=== PATIENT | male | born 1975 | race Caucasian/White ===

== ENCOUNTER → 2017-11-19 | Outpatient (CLI) | payer OTHER ==
[~2017-11-19] MED LIST: NAPR1TAB9 PO; OXYC-57 PO
--- NOTE | 2017-11-19 11:22 | DIAGNOSTIC IMAGING REPORT ---
CHEST 2 VIEWS ROUTINE CLINICAL HISTORY: Preoperative evaluation. COMPARISON STUDY: No previous studies for comparison. FINDINGS: Lung volumes are normal. No pneumothorax or pleural effusion is noted. No consolidation or evidence for pulmonary edema. Cardiac size is normal. Mediastinal contours are normal. IMPRESSION: No acute cardiopulmonary findings. Electronically signed by: Yoel Echavarria M.D. 11/19/2017 11:21 AM Dictated Date/Time: 11/19/2017 11:20 AM
[2017-11-19 11:43] LABS: BASO % 0.2 %; BASO ABS # 0.02 K/uL (0-0.2); EOS % 0.9 %; EOS ABS # 0.09 K/uL (0-0.5); HEMATOCRIT 44.5 % (42-52); HEMOGLOBIN 15.6 g/dL (14.0-18.0); IG# 0.01 K/uL (0.00-0.02); LYMPH % 15.7 %; MEAN CELL VOLUME 94.7 fL (80-100); MEAN CORPUSCULAR HEMOGLOBIN 33.2 pg (25-34); MEAN CORPUSCULAR HGB CONC 35.1 g/dl (32-36); MEAN PLATELET VOLUME 10.7 fL (7.4-10.4); MONO % 9.5 %; MONO ABS # 0.91 K/uL (0.11-0.59); NEUT % 73.6 %; PLATELET COUNT 215 K/uL (130-400); RED CELL DISTRIBUTION WIDTH CV 12.9 % (11.5-14.5); RED CELL DISTRIBUTION WIDTH SD 44.5 fL (36.4-46.3); WHITE BLOOD COUNT 9.53 K/uL (4.8-10.8)
[2017-11-19 11:50] LABS: BLOOD UREA NITROGEN 19 mg/dl (7-18); CALCIUM 9.5 mg/dl (8.5-10.1); CARBON DIOXIDE 27 mmol/L (21-32); CREATININE 1.11 mg/dl (0.60-1.40); GLUCOSE 92 mg/dl (70-99); POTASSIUM 4.1 mmol/L (3.5-5.1); SODIUM 139 mmol/L (136-145)
[2017-11-19 11:55] LABS: PTT PATIENT 33.7 SECONDS (21.0-31.0)
== END | disposition home or self-care (01) ==
LOC: C.CPL 10:11
PROVIDERS: ATTEND Orthopaedic Surgery Orthopaedic Surgery of the Spine
DX: Z01.818 Encounter for other preprocedural examination (principal)

== ENCOUNTER 2017-12-09 05:38 | Inpatient (IN) | payer OTHER ==
[2017-11-12 11:00] VITALS: BMI 31.0
--- NOTE | 2017-11-19 10:44 | PAT Medication Instructions ---
Service Date Nov 19, 2017. Current Home Medication List Naproxen (Aleve), 220 MG PO PRN Oxycodone/Acetaminophen 5MG/325MG (Percocet 5MG/325MG), 1 TABLET PO HS PRN for S Medication Instructions For Your Scheduled Surgery -Instructions per surgeon: Naproxen (Aleve), 220 MG PO PRN - Take the following medications the morning of surgery with a sip of water: Oxycodone/Acetaminophen 5MG/325MG (Percocet 5MG/325MG), 1 TABLET PO HS PRN (if needed, may be taken up to four hours before surgery) - Take the following medications as scheduled the night before surgery: Oxycodone/Acetaminophen 5MG/325MG (Percocet 5MG/325MG), 1 TABLET PO HS PRN (if needed) If you have any questions please call us at [phone] or [phone] or [phone]
[~2017-12-09] VITALS: Ht 182.9 cm; Wt 101.8 kg
[2017-12-09] VITALS (8 sets, daily range): BP systolic 115–152; BP diastolic 74–92; PULSE 62–100; TEMP 36.4–36.9; O2SAT 95–100; Ht 182.9 cm; Wt 101.8 kg
[2017-12-09] MEDS ORDERED: CeleBREX 200 MG CAP PO SCH (06:00)
[2017-12-09] MEDS ORDERED: LACTATED RINGER'S 1000ML 1,000 ML IV SCH (06:00)
[2017-12-09] MEDS ORDERED: GABAPENTIN 900 MG PO SCH (06:00)
[2017-12-09] MEDS ORDERED: CEFAZOLIN 2000MG IV PUSH 15 ML IV SCH (06:00)
[2017-12-09] MEDS ORDERED: ACETAMINOPHEN 500 MG TAB PO SCH (06:00)
[2017-12-09] MEDS ORDERED: GABA-113 PO (06:19)
[2017-12-09] MEDS ORDERED: FENTANYL CITRATE INJ 50 MCG/1 ML 2 ML VIAL ONE ×7 (06:45→12:30)
[2017-12-09] MEDS ORDERED: MIDAZOLAM HCL 1 MG/ML 2ML VIAL ONE (06:45)
[2017-12-09] MEDS ORDERED: SODIUM CHLORIDE 0.9% PF 50 ML VIAL ONE ×2 (06:54→09:58)
[2017-12-09] MEDS ORDERED: BUPIVACAINE LIPOSOME 1/3% 266 MG/20 ML VIAL ONE (07:01)
[2017-12-09] MEDS ORDERED: BUPIVACAINE/EPINEPHRINE 0.5% MPF 1:200,000 30 ML VIAL ONE (07:02)
[2017-12-09] MEDS ORDERED: BUPIVACAINE 0.5 % 5 MG/1 ML PF 10ML VIAL ONE (07:05)
[2017-12-09] MEDS ORDERED: BACITRACIN 50000 UNIT VIAL ONE (07:10)
--- NOTE | 2017-12-09 07:25 | History & Physical Bridge Note ---
H&P Re-Evaluation Bridge Note: I have examined the patient, reviewed the History & Physical and in the interval since the performance of the History & Physical I have noted the following changes of clinical significance: No changes noted
--- NOTE | 2017-12-09 07:27 | History and Physical ---
History & Physical Date Dec 09, 2017. Chief Complaint Back and leg pain History of Present Illness The patient is a 42 year old male with complaints of back and bilateral leg pain Additional History Hepatic Disease: No Endocrine Disorder: No Kidney Disease: No Hypertension: No Heart Disease: No Bleeding Tendencies: No Infectious Diseases: No Allergies Coded Allergies: No Known Allergies (Unverified , 12/09/17) Home Medications Scheduled Naproxen (Aleve), 220 MG PO PRN Scheduled PRN Gabapentin (Neurontin), 300 MG PO HS PRN for Pain Oxycodone/Acetaminophen 5MG/325MG (Percocet 5MG/325MG), 1 TABLET PO HS PRN for S Physical Examination Skin: warm/dry, no rash Eyes: normal inspection, EOMI, sclerae normal ENT: normal ENT inspection, pharynx normal Head: normocephalic, atraumatic Neck: supple, no adenopathy, trachea midline Respiratory/Chest: lungs clear, normal breath sounds, no respiratory distress Cardiovascular: regular rate, rhythm, no edema, no murmur Abdomen / GI: normal bowel sounds, non tender Back: normal inspection Extremities: normal inspection, normal range of motion Neurologic/Psych: no motor/sensory deficits, alert, normal reflexes, oriented x 3 Diagnosis Lumbar spinal stenosis with neurogenic claudication Plan of Treatment L3-S1 revision decompression and fusion
[2017-12-09] MEDS ORDERED: FENTANYL CITRATE INJ 50 MCG/1 ML 2 ML VIAL IV PRN ×2 (08:15→12:45)
[2017-12-09] MEDS ORDERED: EpHEDrine SULFATE INJ 50 MG/ML AMP IV PRN ×2 (08:15→12:45)
[2017-12-09] MEDS ORDERED: HYDROmorphone INJ 1 MG/ML SYR IV PRN ×2 (08:15→12:45)
[2017-12-09] MEDS ORDERED: ATROPINE SULFATE 0.1 MG/ML 5ML SYR IV PRN (08:15)
[2017-12-09] MEDS ORDERED: PROMETHAZINE HCL INJ 6.25 MG in SODIUM CHLORIDE 0.9% 50ML 50 ML IV PRN ×2 (08:15→12:45)
[2017-12-09] MEDS ORDERED: ONDANSETRON INJ 2 MG/ML 2 ML VIAL IV PRN ×3 (08:15→12:45)
[2017-12-09] MEDS ORDERED: HYDROmorphone INJ 2 MG/ML SYR/VIAL ONE ×3 (09:31→09:57)
[2017-12-09] MEDS ORDERED: ROCURONIUM BROMIDE 10 MG/ML 5 ML VIAL ONE ×3 (09:45→11:24)
[2017-12-09] MEDS ORDERED: NEOSTIGMINE METHYLSULFATE 1 MG/ML 10ML VIAL ONE (09:45)
[2017-12-09] MEDS ORDERED: DEXAMETHASONE SOD INJ 4 MG/ML VIAL ONE (09:45)
[2017-12-09] MEDS ORDERED: LIDOCAINE HCL 2% 2 ML VIAL (20MG/ML) ONE (09:45)
[2017-12-09] MEDS ORDERED: GLYCOPYRROLATE INJ 0.2 MG/ML VIAL ONE (09:45)
[2017-12-09] MEDS ORDERED: PROPOFOL IV EMULSION 10 MG/ML 20 ML VIAL ONE ×2 (09:45)
[2017-12-09] MEDS ORDERED: ONDANSETRON INJ 2 MG/ML 2 ML VIAL ONE (09:45)
[2017-12-09] MEDS ORDERED: EpHEDrine SULFATE 50MG/5ML SYR ONE (10:02)
[2017-12-09] MEDS ORDERED: LARYING-O-JET KIT (LTA) ONE (10:37)
[2017-12-09] MEDS ORDERED: KETOROLAC TROMETHAMINE 30 MG/ML VIAL ONE (10:42)
[2017-12-09] MEDS ORDERED: FLOSEAL HEMOSTATIC MATRIX 10ML TOP ONE (11:44)
--- NOTE | 2017-12-09 11:55 | [facility] Operative Report ---
Operative Report Operative Date Dec 09, 2017. Pre-Operative Diagnosis Lumbar spinal stenosis with neurogenic claudication Post-Operative Diagnosis Same as preoperative. Procedure(s) Performed 1. Revision decompression medial facetectomy foraminotomies L3-4 L4-5 L5-S1. #2 posterior spinal fusion L3-4 L4-5 L5-S1. #3 placement of posterior segmental instrumentation L3-4 L4-5 L5-S1. #4 interbody fusion L4-5 L5-S1. #5 placement peek cage 9 x 26 mm at L5-S1 and a 10 x 26 mm titanium cage at L4-5. #6 placement of local autograft in the posterior gutters. #7 placement InFUSE collagen sponge Bymaster graft the posterior gutters and ostial amp in the interbody space. Surgeon Dr. Miguel Davis Wire Walker Surgeon(s) Renae Jones PA-C Estimated Blood Loss 650ml Findings Severe spinal stenosis Specimens None Anesthesia Type General Description of Procedure Patient was met with preoperatively case discussed all questions addressed. After informed consent obtained patient was taken to the operative suite underwent intubation and placed in the prone position on the all bony prominences well-padded eyes inspected to ensure no external pressure placed upon the. This point lumbar spine was prepped and draped in normal sterile fashion. Sharp dissection with the assistance of Bovie cautery was performed down to and exposing the remaining lamina and transverse processes of L3-L4-L5 and sacral ala bilaterally. Then performed a revision complete laminectomy of L5 L4 and L3 addressing severe lateral recess and foraminal disease. After this complete pedicle screws placed in L3-L4 L5-S1 levels bilaterally with the assistance of fluoroscopy the purposes sundar placed. Through a transforaminal approach and left be discectomy of L5-S1 was performed endplates created to subcortical bleeding bone and due to the small disc space and previous scarring was only able to use a peek cage. It was a 9 x 26 mm cage with ostium bone graft tapped in position. Then proceeded L4-5 and again through transforaminal approach on left complete discectomy performed endplates created to subcortical bleeding bone. This level is able to use a more lordotic titanium cage 10 x 26 mm in size for the ostium bone graft. It was tapped in position. The rods then compressed locked in final position bilaterally. The transverse processes of L3-L4-L5 sacral ala burred to subcortical bleeding bone. Infuse collagen sponge master graft local autograft placed in the posterior gutters. Proximally 120 cc of Exparel injected into the musculature. 15 round WINNIE drain inserted. Incision was then closed with 1 Vicryl in the fascia 2-0 Vicryl subcutaneous and 4 Monocryl for fast closure Steri-Strips sterile dressings placed. Patient will continue PACU in a stable condition. Please note Renae Jones was present throughout the entire procedure involved the patient positioning complex portions of the surgery and fashion closure. I attest to the content of the Intraoperative Record and any orders documented therein. Any exceptions are noted below.
[2017-12-09] MEDS ORDERED: PROMETHAZINE HCL INJ 12.5 MG in SODIUM CHLORIDE 0.9% 50ML 50 ML IV PRN (12:00)
[2017-12-09] MEDS ORDERED: LORAZEPAM 0.5 MG TAB PO PRN (12:00)
[2017-12-09] MEDS ORDERED: ACETAMINOPHEN 500 MG TAB PO PRN (12:00)
[2017-12-09] MEDS ORDERED: ALUMINUM/MAGNESIUM SUSP 30 ML UDC PO PRN (12:00)
[2017-12-09] MEDS ORDERED: BISACODYL 10 MG SUPP PR PRN (12:00)
[2017-12-09] MEDS ORDERED: GABAPENTIN 300 MG CAP PO PRN (12:00)
[2017-12-09] MEDS ORDERED: DO NOT ADMINISTER FLU VACCINE PRN (12:00)
[2017-12-09] MEDS ORDERED: SOD PHOSPHATE/SOD BIPHOSPHATE ENEMA 132 ML BTL PR PRN (12:00)
[2017-12-09] MEDS ORDERED: NALOXONE HCL 0.4 MG/1 ML VIAL/CARP IV PRN (12:00)
[2017-12-09] MEDS ORDERED: CEFAZOLIN IV 2,000 MG in DEXTROSE 5% 50ML 50 ML IV SCH (12:00)
[2017-12-09] MEDS ORDERED: DO NOT ADMINISTER PNEUMOCOCCAL VACCINE PRN (12:00)
[2017-12-09] MEDS ORDERED: LORAZEPAM INJ 0.5 MG in SYRINGE 0 ML IV PRN (12:00)
[2017-12-09] MEDS ORDERED: hydrOXYzine HCL 25 MG TAB PO PRN (12:00)
[2017-12-09] MEDS ORDERED: ACETAMINOPHEN IV 100 ML IV PRN (12:00)
[2017-12-09] MEDS ORDERED: METOCLOPRAMIDE HCL INJ 5 MG/ML 2 ML VIAL IV PRN (12:00)
[2017-12-09] MEDS ORDERED: FAMOTIDINE 20 MG TAB PO PRN (12:00)
[2017-12-09] MEDS ORDERED: MAGNESIUM HYDROXIDE SUSP 30 ML UDC PO PRN (12:00)
[2017-12-09] MEDS ORDERED: HYDROmorphone INJ 0.5 MG/0.5 ML SYR IV PRN (12:15)
--- NOTE | 2017-12-09 12:42 | DIAGNOSTIC IMAGING REPORT ---
LUMBAR SPINE 2 OR 3 VIEW CLINICAL HISTORY: 42 years-old Male presenting with L3-S1 REVISION DECOMPRESSION FUSION. TECHNIQUE: 4 fluoroscopic image(s) recorded as part of an intraoperative procedure. COMPARISON: None. FINDINGS/IMPRESSION: Postsurgical changes of posterior bilateral transpedicular screw and sundar fixation of L3-S1 with interbody spacers at L4-5 and L5-S1. Laminectomy defects at L4 and L5. Normal anatomic alignment. Please see surgical report for further details. Fluoroscopy dosage (mGy): 28.59. Fluoroscopy time: 33.1 seconds. Number or time of fluoroscopic spot images: 0. Electronically signed by: John Cody M.D. 12/09/2017 12:41 PM Dictated Date/Time: 12/09/2017 12:40 PM
--- NOTE | 2017-12-09 13:11 | Anesthesiology Progress Note ---
Anesthesia Post Op Note Date & Time Dec 09, 2017 at 13:11 Vital Signs Pain Intensity: 3 Vital Signs Past 12 Hours Date Time Temp Pulse Resp B/P (MAP) Pulse Ox O2 Delivery O2 Flow Rate FiO2 12/09/17 13:00 75 14 132/91 100 Nasal Cannula 2 12/09/17 12:50 74 12 135/86 100 Nasal Cannula 2 12/09/17 12:40 84 14 137/93 100 Oxymask 10 12/09/17 12:30 88 14 148/92 100 Oxymask 10 12/09/17 12:21 36.0 87 16 140/88 98 Oxymask 10 12/09/17 06:22 36.9 62 20 117/76 95 Room Air Notes Mental Status: alert / awake / arousable, participated in evaluation Pt Amnestic to Procedure: Yes Nausea / Vomiting: adequately controlled Pain: adequately controlled Airway Patency, RR, SpO2: stable & adequate BP & HR: stable & adequate Hydration State: stable & adequate Anesthetic Complications: no major complications apparent
[2017-12-09] MEDS: OXYCODONE HCL IR 5 MG TAB (IMMEDIATE RELEASE) PO PRN (15:34)
[2017-12-09] MEDS: CEFAZOLIN IV 2,000 MG in SYRINGE 0 ML IV SCH (17:41)
[2017-12-09] MEDS: LACTATED RINGER'S 1000ML 1,000 ML IV SCH ×2 (19:30→20:09)
[2017-12-09] MEDS: DOCUSATE SODIUM/SENNA 50/8.6MG TAB PO SCH (20:09)
[2017-12-10] MEDS: LACTATED RINGER'S 1000ML 1,000 ML IV SCH (01:34)
[2017-12-10] MEDS: CEFAZOLIN IV 2,000 MG in SYRINGE 0 ML IV SCH (01:34)
[2017-12-10 03:45] VITALS: BP 119/68; PULSE 80; TEMP 36.6; O2SAT 97
[2017-12-10 05:59] LABS: BASO % 0.1 %; BASO ABS # 0.01 K/uL (0-0.2); EOS % 0.1 %; EOS ABS # 0.01 K/uL (0-0.5); HEMATOCRIT 33.1 % (42-52); HEMOGLOBIN 11.5 g/dL (14.0-18.0); IG# 0.03 K/uL (0.00-0.02); LYMPH % 11.2 %; LYMPH ABS # 1.36 K/uL (1.2-3.4); MEAN CORPUSCULAR HEMOGLOBIN 32.3 pg (25-34); MEAN CORPUSCULAR HGB CONC 34.7 g/dl (32-36); MEAN PLATELET VOLUME 10.1 fL (7.4-10.4); MONO ABS # 0.85 K/uL (0.11-0.59); NEUT % 81.4 %; NEUT ABS # 9.91 K/uL (1.4-6.5); PLATELET COUNT 198 K/uL (130-400); RED CELL DISTRIBUTION WIDTH CV 12.6 % (11.5-14.5); RED CELL DISTRIBUTION WIDTH SD 42.8 fL (36.4-46.3); WHITE BLOOD COUNT 12.17 K/uL (4.8-10.8)
[2017-12-10] MEDS ORDERED: NURSING DECISION MEDICATION ORDER SCH (06:00)
[2017-12-10] MEDS ORDERED: HYDROmorphone INJ 0.5 MG/0.5 ML SYR IV PRN (06:00)
[2017-12-10] MEDS ORDERED: OXYCODONE HCL IR 5 MG TAB (IMMEDIATE RELEASE) PO PRN (06:00)
[2017-12-10 06:29] LABS: CALCIUM 8.5 mg/dl (8.5-10.1); CREATININE 0.82 mg/dl (0.60-1.40); POTASSIUM 4.1 mmol/L (3.5-5.1)
[2017-12-10 07:28] VITALS: BP 119/75; PULSE 84; TEMP 36.6; O2SAT 100
--- NOTE | 2017-12-10 11:46 | Progress Note ---
Progress Note Date of Service Dec 10, 2017. Progress Note Patient is postop day #1. Leg pain is improved. Back pain controlled. Vital signs stable. WINNIE drain decreasing appropriately. Assessment status post multilevel lumbar decompression fusion per plan at this time will continue physical therapy advance his bowel regiment anticipate discharge home .
[2017-12-10 11:57] VITALS: BP 135/85; PULSE 92; TEMP 37; O2SAT 98
--- NOTE | 2017-12-10 13:48 | Anesthesiology Progress Note ---
Anesthesia Post Op Note Date & Time Dec 10, 2017 at 13:48 Vital Signs Pain Intensity: 0.0 Vital Signs Past 12 Hours Date Time Temp Pulse Resp B/P (MAP) Pulse Ox O2 Delivery O2 Flow Rate FiO2 12/10/17 11:57 37.0 92 16 135/85 (102) 98 Room Air 12/10/17 09:57 Room Air 12/10/17 07:28 36.6 84 16 119/75 (90) 100 Room Air 12/10/17 03:45 36.6 80 16 119/68 (85) 97 Room Air Notes Mental Status: alert / awake / arousable, participated in evaluation Pt Amnestic to Procedure: Yes Nausea / Vomiting: adequately controlled Pain: adequately controlled Airway Patency, RR, SpO2: stable & adequate BP & HR: stable & adequate Hydration State: stable & adequate Anesthetic Complications: no major complications apparent
[2017-12-10] MEDS: KETOROLAC TROMETHAMINE 30 MG/ML VIAL IV PRN ×2 (14:27→20:27)
[2017-12-10 16:11] VITALS: BP 129/84; PULSE 82; TEMP 36.7; O2SAT 98
[2017-12-10] MEDS: DOCUSATE SODIUM/SENNA 50/8.6MG TAB PO SCH (20:26)
[2017-12-10 23:10] VITALS: BP 120/76; PULSE 84; TEMP 36.7; O2SAT 96
[2017-12-11] MEDS: POLYETHYLENE (MIRALAX) 17 GM PACK PO SCH ×2 (05:51→12:29)
[2017-12-11] MEDS: OXYCODONE HCL IR 5 MG TAB (IMMEDIATE RELEASE) PO PRN ×3 (05:58→14:02)
[2017-12-11 06:18] VITALS: BP 129/77; PULSE 85; TEMP 36.9; O2SAT 97
[2017-12-11] MEDS ORDERED: RXC5 PO (07:42)
--- NOTE | 2017-12-11 07:42 | Discharge Instructions ---
Discharge Instructions Date of Service Dec 11, 2017. Admission Reason for Admission: Lumbar Spinal Stenosis Discharge Discharge Diagnosis / Problem: lumbar stenosis Discharge Goals Goal(s): Improve function Activity Recommendations Activity Limitations: per Instructions/Follow-up section . Instructions / Follow-Up Instructions / Follow-Up ACTIVITY RECOMMENDATIONS: SELF CARE INSTRUCTIONS AFTER THORACIC/LUMBAR FUSIONS 1. You may walk to your tolerance. It is good exercise for your legs and back. Expect some back and intermittent leg aches and pains. 2. You may perform "counter-top" level activities (make a sandwich, uziel with a project, etc.). 3. No bending or lifting of more than 10 pounds or back twisting of any nature (roll like a log when turning in bed). 4. You may ride in a car for 20-30 minutes at a time. No driving until after your first visit with your doctor. 5. Frequent changes of position and restricting sitting to 30 minutes at a time will help limit the amount of back spasms and stiffness you may experience. 6. You may discontinue the use of ambulatory aids (cane, crutches, etc.) once your strength and confidence allow. 7. You may imaging scheduler the shower and let water strike your incision when you arrive home at least once daily. Do not take a tub bath, sit in a hot tub or go into a swimming pool until after your first recheck in the office. SPECIAL CARE INSTRUCTIONS: VERY IMPORTANT TO READ AND REVIEW A. Your surgical incision has been closed with a cosmetic suture under the skin that will dissolve in about 6 weeks. In 14 days, you can use a pair of clean scissors and cut the suture that is left outside of the skin at the ends of your incision. 1. The small skin tapes can be removed 7 days after surgery if they have not fallen off by that point. 2. You may keep the wound open to air as much as possible to promote healing after post-op day number 5 unless told otherwise by your doctor. 3. If you think the wound looks like it is becoming infected (redness or worsening drainage) and/or you are experiencing fever, chill or worsening back pain and muscle spasms, contact the office so that we may evaluate you as soon as possible. B. Complications are uncommon, but please contact us if you have any signs or symptoms of: 1. wound infection (fever higher than 102.5 degrees F, redness, separation of wound, drainage, or increasing pain from the incision) 2. blood clots in legs (pain, swelling, redness and warmth in legs) 3. urinary tract infection (fever higher than 102.5 degrees F, burning upon urination or increased frequency of urination) 4. nerve problems (inability to walk on your toes or heels, numbness, loss of bowel or bladder control) 5. any other symptoms that concern you C. Please call the office at if you have any concerns or questions about your operation or recovery. D. No smoking! Smoking drastically decreases the chance of a solid fusion. E. Do not take any anti-inflammatory medications (Indocin, Advil, Motrin, Aspirin, Naprosyn, etc.) as these may inhibit the chance of a solid fusion. Tylenol is okay to take for pain. MANAGING PAIN AFTER SPINAL SURGERY 1. Narcotic medication is intended for short-term use and will be provided for surgical pain. Surgical pain usually lasts for a period of 4-6 weeks. Narcotic medication includes Percocet, Vicodin, Darvocet, Tylenol #3 or Lortab. 2. Longer-term pain is more appropriately treated with non-narcotic medication such as Tylenol ES. 3. Muscle spasm is not appropriately treated with narcotics. Muscle relaxers such as Soma, Flexeril or Skelaxin can be used along with Tylenol ES. 4. Remember that we all live with some "aches and pains". This is not unusual or uncommon after an injury or as we get older. a. Back pain is expected and may include muscle spasms for 4 to 6 weeks after surgery. The pain should gradually improve. If the pain worsens for no apparent reason, please contact the office. b. Intermittent leg pain may also be experienced and should not be concerned about unless it worsens for no apparent reason. If so, please contact the office. 5. We will provide appropriate medication within the normal guidelines of their prescribed use. We will also be very cautious and aware of potential abuse and extended duration of patients' medication needs. a. Pain medications are for your comfort and to assist with sleep and rest so that the tissue can heal. They are not provided in order to return to normal activity and should not be used through the day. To do so or worsening pain at night can result from ongoing tissue damage and development of tolerance to the prescribed medicine. 6. Please allow 2-3 days to process refills. Prescriptions will not be mailed but must be picked up at the office. FOLLOW UP VISIT: Keep your scheduled follow-up appointment. Any questions, please call the office at . Current Hospital Diet Patient's current hospital diet: Regular Diet Discharge Diet Recommended Diet: Regular Diet Procedures Procedures Performed: 1. Revision decompression medial facetectomy foraminotomies L3-4 L4-5 L5-S1. #2 posterior spinal fusion L3-4 L4-5 L5-S1. #3 placement of posterior segmental instrumentation L3-4 L4-5 L5-S1. #4 interbody fusion L4-5 L5-S1. #5 placement peek cage 9 x 26 mm at L5-S1 and a 10 x 26 mm titanium cage at L4-5. #6 placement of local autograft in the posterior gutters. #7 placement InFUSE collagen sponge Bymaster graft the posterior gutters and ostial amp in the interbody space. Pending Studies Studies pending at discharge: no Medical Emergencies . Who to Call and When: Medical Emergencies: If at any time you feel your situation is an emergency, please call 911 immediately. . Non-Emergent Contact Non-Emergency issues call your: Primary Care Provider . "Provider Documentation" section prepared by Miguel Davis. .
[2017-12-11 13:43] VITALS: BP 129/77; PULSE 85; TEMP 36.9; O2SAT 97
--- NOTE | 2017-12-11 16:45 | Discharge Summary ---
Orthopedic Discharge Summary Admission Date/Reason Dec 09, 2017 at 07:35 Lumbar Spinal Stenosis. Discharge Date/Disposition Dec 11, 2017 Home Diagnosis Principal Diagnosis: Lumbar spinal stenosis Admission Physical Exam As per Admitting History & Physical. Hospital Course Patient underwent multilevel lumbar decompression fusion tolerated this well was taken to the orthopedic floor possibly. Postop day #1 is up and amatory leg pain improved progressed the postop day #2. WINNIE drain decreased appropriately. Subsequently was discharged home. Discharge orders and instructions can be found in the chart for further review. Discharge Instructions Please refer to the electronic Patient Visit Report (Discharge Instructions) for additional information.
== END 2017-12-11 15:10 | disposition home or self-care (01) | DRG 455 ==
LOC: C.ACU 05:38 → C.3E 07:35 → ENRESERV 12:49
PROVIDERS: ADMIT Orthopaedic Surgery Orthopaedic Surgery of the Spine; ATTEND Orthopaedic Surgery Orthopaedic Surgery of the Spine
PROC: 0ST20ZZ Resection of Lumbar Vertebral Disc, Open Approach (ICD-10-PCS; principal; 2017-12-09 07:45)
PROC: 0ST40ZZ Resection of Lumbosacral Disc, Open Approach (ICD-10-PCS; principal; 2017-12-09 07:45)
PROC: 0SG30AJ Fusion of Lumbosacral Joint with Interbody Fusion Device, Posterior Approach, Anterior Column, Open Approach (ICD-10-PCS; principal; 2017-12-09 07:45)
PROC: 0SG1071 Fusion of 2 or more Lumbar Vertebral Joints with Autologous Tissue Substitute, Posterior Approach, Posterior Column, Open Approach (ICD-10-PCS; principal; 2017-12-09 07:45)
PROC: 0SG00AJ Fusion of Lumbar Vertebral Joint with Interbody Fusion Device, Posterior Approach, Anterior Column, Open Approach (ICD-10-PCS; principal; 2017-12-09 07:45)
PROC: 0SG3071 Fusion of Lumbosacral Joint with Autologous Tissue Substitute, Posterior Approach, Posterior Column, Open Approach (ICD-10-PCS; principal; 2017-12-09 07:45)
DX: M48.062 Spinal stenosis, lumbar region with neurogenic claudication (principal)